=== PATIENT | male | born 1980 | race Caucasian/White ===

== ENCOUNTER 2018-09-23 20:30 | Emergency (ER) | payer OTHER ==
[~2018-09-23] VITALS: Ht 182.9 cm; Wt 99.8 kg
[2018-09-23 20:45] VITALS: BP 123/96
--- NOTE | 2018-09-23 21:47 | NUR ---
PATIENT AMBULATED TO ER BED 3.
--- NOTE | 2018-09-23 21:56 | NUR ---
PT C/O R WRIST PAIN, PT WAS SEEN AT [facility] AND GIVEN DX OF FX 09/13/18. WAS SCHEDULED TO HAVE WRIST SURGERY X1 DAY AGO. PT REFUSED TO GO TO SURGERY D/T PERSONAL ISSUES. PT IS STILL NOW C/O PAIN 03/03 AT THIS TIME. STATES HE IS OUT OF PAIN MEDICATION AT HOME. STATES HE IS PLANNING ON CALLING TO RESCHEDULE THE SURGERY TOMORROW.
--- NOTE | 2018-09-23 23:01 | NUR ---
VERBAL ORDER GIVEN MY DR. KAYE TO REPLACE PATIENT'S RIGHT ARM SUGARTONG SPLINT AND KELLY WRAP WITH A NEW SUGARTONG SPLINT AND KELLY WRAP, ALONG WITH A SLING. NEW SUGARTONG APPLIED TO RIGHT ARM USING ORTHO GLASS 4 AND TWO KELLY WRAP NUMBER 2. PATIENT'S RIGHT ARM PLACED IN A MEDIUM SLING WITH PMSCs INTACT THROUGHOUT APPLICATION.
[2018-09-23 23:10] VITALS: BP 124/94
--- NOTE | 2018-09-23 23:10 | NUR ---
Patient discharged with v/s stable. Written and verbal after care instructions given and explained. Patient alert, oriented and verbalized understanding of instructions. Ambulatory with steady gait. All questions addressed prior to discharge. ID band removed. Patient advised to follow up with PMD. Rx of NORCO AND NARCAN given. Patient educated on indication of medication including possible reaction and side effects. Opportunity to ask questions provided and answered.
== END 2018-09-23 23:10 | disposition home or self-care (01) ==
LOC: MED 20:30
DX: M25.531 Pain in right wrist (principal); Z98.890 Other specified postprocedural states
CPT/HCPCS: 99283